=== PATIENT | female | born 1955 | race Caucasian/White ===

== ENCOUNTER 2016-07-02 08:44 | Emergency (ER) | payer SELFPAY ==
[~2016-07-02] VITALS: Ht 154.9 cm; Wt 63.0 kg
[~2016-07-02 08:44] MED LIST: NOHOMEMEDS
[2016-07-02] MEDS ORDERED: PROAIR HFA8.5 GM IH (11:39)
[2016-07-02] MEDS ORDERED: PREDNISONE50 MG PO (11:39)
[2016-07-02] MEDS ORDERED: ZITHROMAX Z-PA250 MG PO (11:39)
[2016-07-02] MEDS ORDERED: COMBIVENT RESPIM4 GM IH (11:44)
[2016-07-02 12:30] VITALS: BP 125/88
== END 2016-07-02 12:57 | disposition home or self-care (01) ==
LOC: EME 08:44
DX: J20.9 Acute bronchitis, unspecified (principal); F17.200 Nicotine dependence, unspecified, uncomplicated
CPT/HCPCS: 71020; 94640; 99281; 99284; J7512